=== PATIENT | female | born 1990 | race Caucasian/White ===

== ENCOUNTER 2022-06-07 07:50 | Emergency (ER) | payer OTHER, MEDICAID ==
[~2022-06-07] VITALS: Ht 165.1 cm; Wt 73.0 kg
[2022-06-07 08:01] VITALS: BP 114/70
[2022-06-07 09:58] LABS: BASOPHILS % 0.5 % (0.0-2.0); EOSINOPHILS % 0.8 % (0.0-5.0); HEMATOCRIT. 40.2 % (36.0-48.0); HEMOGLOBIN. 13.6 g/dL (12.0-16.0); MEAN CORPUSCULAR HEMOGLOBIN 31.5 pg (28.0-32.0); MEAN CORPUSCULAR VOLUME 92.5 fL (81.0-99.0); MONOCYTES % 5.2 % (2.0-8.0); NEUTROPHILS % 71.5 % (40.0-76.0); PLATELET 340 x1000/uL (130-400); RED BLOOD CELL COUNT 4.34 mill/uL (4.2-5.4); RED CELL DISTRIBUTION WIDTH 14.7 % (11.6-14.6)
[2022-06-07 10:10] LABS: CHLORIDE 105 mEq/L (98-107)
[2022-06-07 10:34] LABS: B-HCG QUANTITATIVE 62804 mIU/mL (<3)
== END 2022-06-07 11:12 | disposition home or self-care (01) ==
LOC: ER 07:50
DX: O20.9 Hemorrhage in early pregnancy, unspecified (principal); Z3A.08 8 weeks gestation of pregnancy; Z37.9 Outcome of delivery, unspecified
CPT/HCPCS: 36415; 76801; 80053; 81025; 84702; 85025; 86850; 86900; 99284

== ENCOUNTER 2022-06-09 07:42 | Emergency (ER) | payer OTHER, MEDICAID ==
[~2022-06-09] VITALS: Ht 157.5 cm; Wt 84.0 kg
[2022-06-09] MEDS ORDERED: PNV1TAB.3 MT (10:08)
[2022-06-09 10:45] VITALS: BP 128/86
== END 2022-06-09 10:46 | disposition home or self-care (01) ==
LOC: ER 08:28
DX: O46.91 Antepartum hemorrhage, unspecified, first trimester (principal); Z3A.08 8 weeks gestation of pregnancy
CPT/HCPCS: 36415; 76801; 81025; 84702; 99284

== ENCOUNTER 2022-10-07 07:16 | Emergency (ER) | payer MEDICAID, OTHER ==
[~2022-10-07] VITALS: Ht 157.5 cm; Wt 84.0 kg
[~2022-10-07 07:16] MED LIST: PNV1TAB.3 MT
[2022-10-07 07:46] VITALS: BP 120/74; PULSE 86; RESP 16; TEMP 98.7; O2SAT 98
[2022-10-07] MEDS ORDERED: FLUORESCEIN SODIUM 1MG/STRIP RIGHTEYE ONE (09:00)
[2022-10-07] MEDS ORDERED: TETRACAINE 0.5% OPHTH DROPS 4ML RIGHTEYE ONE (09:00)
[2022-10-07] MEDS ORDERED: ACET-2708 MT (09:35)
[2022-10-07] MEDS ORDERED: DIPH25TA62 MT (09:35)
== END 2022-10-07 10:16 | disposition home or self-care (01) ==
LOC: ER 07:16
DX: B30.9 Viral conjunctivitis, unspecified (principal); H57.11 Ocular pain, right eye
CPT/HCPCS: 81025; 99283

== ENCOUNTER 2023-02-21 04:50 | Emergency (ER) | payer OTHER ==
[~2023-02-21] VITALS: Ht 165.1 cm; Wt 82.0 kg
[~2023-02-21 04:50] MED LIST changes: +ACET-2708 MT; +DIPH25TA62 MT
[2023-02-21 04:59] VITALS: O2SAT 99
[2023-02-21 05:37] LABS: BASOPHILS % 0.3 % (0.0-2.0); EOSINOPHILS % 2.4 % (0.0-5.0); HEMATOCRIT. 41.6 % (36.0-48.0); HEMOGLOBIN. 13.2 g/dL (12.0-16.0); MEAN CORPUSCULAR HGB CONC 31.7 g/dL (31.0-37.0); MEAN CORPUSCULAR VOLUME 91.3 fL (81.0-99.0); MEAN PLATELET VOLUME 8.4 fl (7.4-10.4); MONOCYTES % 4.4 % (2.0-8.0); NEUTROPHILS % 71.9 % (40.0-76.0); PLATELET 377 x1000/uL (130-400); RED BLOOD CELL COUNT 4.55 mill/uL (4.2-5.4); RED CELL DISTRIBUTION WIDTH 15.6 % (11.6-14.6); WHITE BLOOD COUNT 10.5 x1000/uL (4.5-11.0)
[2023-02-21 05:44] LABS: CLARITY URINE CLEAR (CLEAR); COLOR URINE YELLOW (YELLOW); GLUCOSE URINE NEGATIVE (NEGATIVE); KETONES URINE NEGATIVE (NEGATIVE); LEUKOCYTE ESTERASE URINE NEGATIVE (NEGATIVE); NITRITE URINE NEGATIVE (NEGATIVE); OCCULT BLOOD URINE NEGATIVE (NEGATIVE); PH URINE 5.5 (4.5-8.0); PROTEIN URINE NEGATIVE (NEGATIVE); SPECIFIC GRAVITY URINE 1.016 (1.005-1.030); UROBILINOGEN URINE 0.2 E.U./dL (0.2-1.0)
[2023-02-21 05:52] LABS: ALANINE AMINOTRANSFERASE 40 IU/L (10-49); ALBUMIN 4.2 g/dL (3.2-4.8); ASPARTATE AMINOTRANSFERASE 49 IU/L (<34); BILIRUBIN TOTAL 0.5 mg/dL (0.1-1.0); CALCIUM 9.2 mg/dL (8.7-10.4); CARBON DIOXIDE 27 mEq/L (21-32); CHLORIDE 108 mEq/L (98-107); CREATININE 0.9 mg/dL (0.6-1.0); GLUCOSE 132 mg/dL (70-105); POTASSIUM 3.7 mEq/L (3.5-5.1); PROTEIN TOTAL 7.3 g/dL (6.0-8.3); SODIUM 143 mEq/L (136-145); TROPONIN I HIGH SENSITIVITY 14 ng/L (3.0-34); UREA NITROGEN BLOOD 8 mg/dL (9-23)
[2023-02-21 07:07] LABS: HCG SCREEN NEGATIVE
[2023-02-21] MEDS ORDERED: ONDANSETRON HCL 4MG TABLET PO ONE (07:45)
[2023-02-21] MEDS ORDERED: TOPUD PO (08:18)
[2023-02-21] MEDS ORDERED: ONDA4TAB50 PO (08:18)
[2023-02-21 08:47] VITALS: BP 114/78; PULSE 74; RESP 15; TEMP 98
== END 2023-02-21 08:49 | disposition home or self-care (01) ==
LOC: ER 04:50
DX: R10.10 Upper abdominal pain, unspecified (principal); Z79.899 Other long term (current) drug therapy
CPT/HCPCS: 99284; 80053; 81003; 81025; 84703; 83690; 85025; 84484; 36415; 93005; Q0162

== ENCOUNTER 2024-11-14 05:48 | Emergency (ER) | payer OTHER ==
[~2024-11-14] VITALS: Ht 165.1 cm; Wt 89.0 kg
[~2024-11-14 05:48] MED LIST changes: +ONDA4TAB50 PO; +TOPUD PO
[2024-11-14 06:11] VITALS: O2SAT 98
[2024-11-14 06:40] LABS: BASOPHILS % 0.4 % (0.0-2.0); EOSINOPHILS % 0.3 % (0.0-5.0); HEMATOCRIT. 41.0 % (36.0-48.0); HEMOGLOBIN. 13.8 g/dL (12.0-16.0); LYMPHOCYTES % 9.5 % (20.0-50.0); MEAN PLATELET VOLUME 8.4 fl (7.4-10.4); MONOCYTES % 3.9 % (2.0-8.0); NEUTROPHILS % 85.9 % (40.0-76.0); PLATELET 350 x1000/uL (130-400); RED BLOOD CELL COUNT 4.44 mill/uL (4.2-5.4); RED CELL DISTRIBUTION WIDTH 12.9 % (11.6-14.6)
[2024-11-14 06:47] LABS: CREATININE 0.7 mg/dL (0.6-1.0); UREA NITROGEN BLOOD 10 mg/dL (9-23)
[2024-11-14] MEDS: METOCLOPRAMIDE HCL 10MG/2ML VIAL IV ONE (07:13)
[2024-11-14] MEDS: MAGNESIUM/ALUMINUM HYDROXIDE/SIMETHICONE 30ML UDC PO ONE (07:13)
[2024-11-14] MEDS: FAMOTIDINE 20MG/2ML VIAL IV ONE (07:21)
[2024-11-14 07:42] LABS: CLARITY URINE CLEAR (CLEAR); COLOR URINE DARK YELLOW (YELLOW); GLUCOSE URINE NEGATIVE (NEGATIVE); KETONES URINE TRACE (NEGATIVE); LEUKOCYTE ESTERASE URINE TRACE (NEGATIVE); NITRITE URINE NEGATIVE (NEGATIVE); OCCULT BLOOD URINE NEGATIVE (NEGATIVE); PH URINE 5.5 (4.5-8.0); PROTEIN URINE NEGATIVE (NEGATIVE); SPECIFIC GRAVITY URINE 1.032 (1.005-1.030); UROBILINOGEN URINE 0.2 E.U./dL (0.2-1.0)
[2024-11-14 07:53] LABS: ASPARTATE AMINOTRANSFERASE 21 IU/L (<34); BILIRUBIN DIRECT 0.2 mg/dL (<=3.0); BILIRUBIN TOTAL 0.8 mg/dL (0.1-1.0); PROTEIN TOTAL 7.2 g/dL (6.0-8.3)
[2024-11-14 08:02] LABS: RBC URINE NONE SEEN /hpf (0-2); SQUAMOUS EPITHELIAL CELL URINE 2+ /lpf (RARE/1+)
[2024-11-14 08:03] LABS: BACTERIA URINE 1+; MUCUS URINE 1+ /lpf (< = 2+)
[2024-11-14 08:49] VITALS: BP 109/75; PULSE 85; RESP 18; TEMP 36.8; O2SAT 98
== END 2024-11-14 08:50 | disposition home or self-care (01) ==
LOC: ER 05:48 → CMPBEDREQ 10:57
DX: K80.70 Calculus of gallbladder and bile duct without cholecystitis without obstruction (principal); Z79.899 Other long term (current) drug therapy
CPT/HCPCS: 80076; 80048; 81003; 81025; 83690; 85025; 36415; 76705; 96374; 96375; 99285; J1308; J2765; Z7610